=== PATIENT | male | born 1970 | race Caucasian/White ===

== ENCOUNTER 2018-03-04 16:09 | Emergency (ER) | payer SELFPAY ==
[~2018-03-04] VITALS: Ht 165.1 cm; Wt 63.5 kg
--- NOTE | 2018-03-04 16:18 | NUR ---
Dr. Dawn here to see pt for MSE.
[2018-03-04] MEDS ORDERED: IV NORMAL SALINE 500 ML IV ONE (16:30)
[2018-03-04] MEDS ORDERED: IV NORMAL SALINE 1,000 ML IV ONE (19:30)
--- NOTE | 2018-03-04 19:35 | NUR ---
PT REFUSES CT SCAN. MD DUARTE MADE AWARE.
--- NOTE | 2018-03-04 20:29 | NUR ---
PT RETURNS FROM CT IN [facility] WITH TRANSPORTER
--- NOTE | 2018-03-04 20:50 | NUR ---
Patient able to tolerate meal
--- NOTE | 2018-03-04 20:52 | NUR ---
IV removed. Catheter intact and site benign. Pressure and 4x4 gauze applied to site. No bleeding noted.
--- NOTE | 2018-03-04 21:03 | NUR ---
Patient discharged to home in stable conditon. Written and verbal after care instructions given. Patient verbalizes understanding of instructions. Walked out of ER with steady gait. No distress noted
[2018-03-04 21:05] VITALS: BP 118/66
== END 2018-03-04 21:05 | disposition home or self-care (01) ==
LOC: ER 16:11 → EDBD 16:11 → ER 21:05
DX: F10.121 Alcohol abuse with intoxication delirium (principal)
CPT/HCPCS: 36415; 70450; 72125; A4663; G0480; J7030; J7040